=== PATIENT | male | born 1980 | race Caucasian/White ===

== ENCOUNTER 2017-11-20 10:01 | Day surgery (SDC) | payer BC ==
[~2017-11-20 10:01] MED LIST: BUPIVACAINE MPF 0.5% 30 ML VIAL.; DEXAMETHASONE SOD PHOS 4 MG/ML VIAL; HYDROmorphone 2 MG/ML VIAL IV; IV RINGERS,LACTATED 1000ML 1,000 ML IV; LIDOCAINE 1% PF 2 ML VIAL. ID; LIDOCAINE 1% PF 30 ML VIAL.; MORPHINE SULFATE 2 MG/ML DISP.SYRIN. IV; ONDANSETRON PF 4 MG/2 ML VIAL. IV; POVIDONE-IODINE 10% TOPICAL OINTMENT 28GM TUBE. TP; PROCHLORPERAZINE 10 MG/2 ML VIAL. IV; fentaNYL PF VIAL 100 MCG/2 ML VIAL IV; methylPREDNISolone ACETATE 40 MG/ML VIAL.
[2017-11-20] MEDS ORDERED: DEXAMETHASONE SOD PHOS 20 MG/5 ML VIAL. ×4 (10:26→11:31)
[2017-11-20] MEDS ORDERED: ONDANSETRON PF 4 MG/2 ML VIAL. ×2 (10:26)
[2017-11-20] MEDS ORDERED: PROPOFOL 20 ML IV ×2 (10:26)
[2017-11-20] MEDS ORDERED: FAMOTIDINE 20 MG/2 ML VIAL ×2 (10:26)
[2017-11-20] MEDS ORDERED: LIDOCAINE 2% PF Vial for OR 5 ML VIAL. ×2 (10:26)
[2017-11-20] MEDS: IV RINGERS,LACTATED 1000ML 1,000 ML IV ×2 (10:35)
[2017-11-20] MEDS ORDERED: LIDOCAINE 1% 20 ML VIAL. ×2 (11:16)
[2017-11-20] MEDS ORDERED: POVIDONE-IODINE 10% TOPICAL OINTMENT 28GM TUBE. TP ×2 (11:18)
[2017-11-20] MEDS ORDERED: fentaNYL PF VIAL 100 MCG/2 ML VIAL ×2 (11:32)
[2017-11-20] MEDS ORDERED: MIDAZOLAM HCL/PF 2 MG/2 ML VIAL. ×2 (11:32)
[2017-11-20] MEDS: BUPIVACAINE 0.5% 50 ML VIAL. ×2 (12:10)
[2017-11-20] MEDS: LIDOCAINE 1% 20 ML VIAL. ×2 (12:10)
[2017-11-20] MEDS ORDERED: KETOROLAC 30 MG/ML INJ FOR OR. INJ ×2 (13:34)
[2017-11-20] MEDS ORDERED: SEVOFLURANE > 120 MINUTES. IH ×2 (13:46)
[2017-11-20] MEDS ORDERED: HYDROcodone/APAP 7.5/325MG 1 TAB TABLET ×2 (14:40)
[2017-11-20] MEDS: HYDROcodone/APAP 7.5/325MG 1 TAB TABLET PO ×2 (14:46)
== END 2017-11-20 15:45 | disposition home or self-care (01) ==
LOC: SURG 10:01
DX: M20.42 Other hammer toe(s) (acquired), left foot (principal); M20.41 Other hammer toe(s) (acquired), right foot; F17.200 Nicotine dependence, unspecified, uncomplicated; Z98.890 Other specified postprocedural states; Z90.49 Acquired absence of other specified parts of digestive tract; Z87.39 Personal history of other diseases of the musculoskeletal system and connective tissue; Z72.89 Other problems related to lifestyle
CPT/HCPCS: 28285; C1713; J0690; J1030; J1100; J1885; J2250; J2405; J2704; J3010; J3490; S0028